=== PATIENT | female | born 1985 | race Caucasian/White ===

== ENCOUNTER 2022-04-21 07:07 | Emergency (ER) | payer OTHER ==
[2022-04-21 07:27] VITALS: RESP 18; BMI 25.3
[2022-04-21 08:50] LABS: EPI CELLS 4 /uL (0-25.1); HCG,QUALITATIVE URINE Negative; HYALINE CASTS 0 /uL (0-3.1); URINE APPEARANCE CLEAR; URINE BACTERIA 6 /uL (0-1359); URINE BILIRUBIN NEGATIVE (NEGATIVE); URINE COLOR YELLOW; URINE GLUCOSE (UA) NEGATIVE (NEGATIVE); URINE KETONE NEGATIVE (NEGATIVE); URINE LEUK ESTERASE NEGATIVE (NEGATIVE); URINE NITRITE NEGATIVE (NEGATIVE); URINE PROTEIN NEGATIVE (NEGATIVE); URINE RBC 21 /uL (0-23.9); URINE WBC 4 /uL (0-25.8)
[2022-04-21] MEDS ORDERED: KETOROLAC TROMETHAMINE 15 MG/ML VIAL IVPUSH ONE (09:03)
[2022-04-21] MEDS ORDERED: SODIUM CHLORIDE 1,000 ML IV STA (09:03)
[2022-04-21] MEDS ORDERED: KETOROLAC TROMETHAMINE 15 MG/ML VIAL ONE (09:13)
[2022-04-21] MEDS ORDERED: IBUPROFEN 200 MG TABLET PO ONE (09:14)
[2022-04-21] MEDS ORDERED: IBUPROFEN 400 MG TABLET (FP) PO ONE (09:30)
[2022-04-21 09:50] LABS: HEMATOCRIT 38.1 % (32.4-45.2); HEMOGLOBIN 13.1 GM/dL (10.7-15.3); MCH 30.3 pg (25.7-33.7); MCHC 34.4 g/dl (32.0-36.0); MEAN CELL VOLUME 87.9 fl (80-96); MEAN PLT VOLUME 9.2 fl (7.5-11.1); PLATELET COUNT 164 10^3/uL (134-434); RBC 4.33 M/mm3 (3.60-5.2); RDW 13.8 % (11.6-15.6); WHITE BLOOD COUNT 8.2 K/mm3 (4.0-10.0)
[2022-04-21 10:04] LABS: ALBUMIN 3.4 g/dl (3.4-5.0); CALCIUM 8.1 mg/dL (8.5-10.1)
[2022-04-21 10:06] LABS: CREATININE 0.4 mg/dL (0.55-1.3)
[2022-04-21 10:08] LABS: BILIRUBIN,TOTAL 0.5 mg/dL (0.2-1)
[2022-04-21 13:46] VITALS: BP 102/68; PULSE 88; TEMP 98.3
== END 2022-04-21 15:18 | disposition home or self-care (01) ==
LOC: JER 07:07
PROC: 3E0333Z Introduction of Anti-inflammatory into Peripheral Vein, Percutaneous Approach (ICD-10-PCS; principal; 2022-04-21)
PROC: 3E0337Z Introduction of Electrolytic and Water Balance Substance into Peripheral Vein, Percutaneous Approach (ICD-10-PCS; 2022-04-21)
DX: R10.32 Left lower quadrant pain (principal)
CPT/HCPCS: 36415; 74176-TC; 76830-TC; 80053; 81003; 84703; 85027; 87086; 87491; 87591; 87661; 99284-25

== ENCOUNTER 2023-10-15 17:30 | Emergency (ER) | payer OTHER ==
[2023-10-15 17:43] VITALS: BP 107/67; PULSE 62; RESP 18; TEMP 97.3; BMI 26.5
[2023-10-15] MEDS ORDERED: CYCLOBENZAPRINE HCL 10 MG TABLET (FP) ONE (18:24)
[2023-10-15] MEDS ORDERED: LIDOCAINE 4% PATCH TP ONE (18:24)
[2023-10-15] MEDS ORDERED: IBUPROFEN 600 MG TABLET (FP) PO ONE ×2 (18:24→18:25)
[2023-10-15] MEDS ORDERED: ACETAMINOPHEN 500 MG TABLET (FP) ONE (18:25)
[2023-10-15] MEDS: IBUPROFEN 600 MG TABLET (FP) PO ONE (18:35)
[2023-10-15] MEDS: LIDOCAINE 4% PATCH TP ONE (18:35)
[2023-10-15] MEDS: CYCLOBENZAPRINE HCL 10 MG TABLET (FP) PO ONE (18:35)
[2023-10-15] MEDS: ACETAMINOPHEN 500 MG TABLET (FP) PO ONE (18:36)
[2023-10-15] MEDS ORDERED: LIDOCAINE PATCH REMOVAL MC SCH (22:00)
== END 2023-10-15 20:17 | disposition home or self-care (01) ==
LOC: JER 17:30 → JERFT 17:30
DX: M54.50 Low back pain, unspecified (principal); G89.29 Other chronic pain; F41.9 Anxiety disorder, unspecified
CPT/HCPCS: 71046-TC-FY; 99283-25